=== PATIENT | male | born 1950 | race Caucasian/White ===

== ENCOUNTER → 2018-04-10 16:29 | Outpatient (CLI) | payer MEDICARE, OTHER, SELFPAY ==
[2018-04-10 17:25] LABS: Absolute Lymphocyte Count 1.65 X10^3/ul (0.83-4.51); Absolute Neutrophil Count 4.3 X10^3/uL (2.0-7.7); Basophil# 0.02 X10^3/uL; Basophil% 0.3 % (0-1); Eosinophil# 0.33 X10^3/uL; Eosinophils% 4.8 % (0-5); Hematocrit 44.9 % (40-54); Hemoglobin 15.2 g/dl (13.0-16.5); Lymphocyte # 1.65 X10^3/ul (4.0); Lymphocyte % 24.1 % (19-41); Mean Corp Hgb Conc 33.9 g/gl (32-36); Mean Corpuscular Hgb 30.7 pg (27.0-32.0); Mean Corpuscular Volume 90.7 fL (80-94); Mean Platelet Vol. 10.1 fl (6.2-12.0); Monocyte# 0.51 X10^3/uL; Monocyte% 7.4 % (0-10); Neutrophil # 4.34 X10^3/uL (2.7-7.7); Neutrophil % 63.3 % (47-70); Platelet Count 188 K/mm3 (150-450); RBC Distribution Width CV 12.6 % (11.6-14.6); RBC Distribution Width SD 41.5 fl (35.1-43.9); Red Blood Count 4.95 M/mm3 (4.6-6.2); White Blood Count 6.9 K/mm3 (4.4-11.0)
[2018-04-10 17:26] LABS: POSITIVE COUNT NO; POSITIVE DIFFERENTIAL NO; POSITIVE MORPHOLOGY NO
[2018-04-10 17:38] LABS: Albumin, Serum 4.1 g/dL (3.2-5.0); BUN 17 mg/dL (7-18); BUN/Creat Ratio 13.7 RATIO (10-20); Creatinine, Serum 1.24 mg/dL (0.70-1.30); EST Glomerular Filtration Rate 62 mL/min (>60); Est Glom Filt Rate - Afr Amer 75 mL/min (>60); Globulin 3.8 g/dL (2.2-4.2); Glucose 272 mg/dL (74-106); Protein, Total 7.9 g/dL (6.4-8.2)
[2018-04-10 17:39] LABS: ALB/GLOB Ratio 1.1 RATIO (0.9-2.4); AST(SGOT) 19 U/L (15-37); Alanine Aminotransfer ALT/SGPT 39 U/L (16-61); Alkaline Phosphatase 100 U/L (45-117); Anion Gap 6 (5-15); Calcium,Total 8.8 mg/dL (8.5-10.1); Chloride 105 mmol/L (98-107); Potassium 4.3 mmol/L (3.5-5.1); Sodium Level 140 mmol/L (136-145)
[2018-04-12 11:09] LABS: HEPATITIS B SURFACE AG Negative (Negative); Hepatitis A AB, Total Negative (Negative); Hepatitis A IgM Antibody Negative (Negative); Hepatitis B Core AB IgM Negative (Negative); Hepatitis B Core Ab Total Negative (Negative); Hepatitis C Ab <0.1 s/co ratio (0.0-0.9)
[2018-04-13 09:56] LABS: Hep B Surface Antibodies Non Reactive (.)
== END ==
PROVIDERS: Referring Provider Dermatology Pediatric Dermatology; Visit Provider Dermatology Pediatric Dermatology
DX: L40.0 Psoriasis vulgaris (principal)
CPT/HCPCS: 36415; 80053; 85025; 86704; 86705; 86706; 86708; 86709; 86803; 87340

== ENCOUNTER 2019-08-23 15:05 | Emergency (ER) | payer OTHER, MEDICARE, SELFPAY ==
[2019-08-23 15:07] VITALS: BP 157/79; PULSE 110; RESP 18; TEMP 36.2; O2SAT 98; BMI 32.8
[2019-08-23 15:23] VITALS: RESP 16
[2019-08-23 15:49] LABS: Absolute Neutrophil Count 5.6 X10^3/uL (2.0-7.7); Basophil# 0.02 X10^3/uL; Basophil% 0.3 % (0-1); Eosinophil# 0.09 X10^3/uL; Eosinophils% 1.2 % (0-5); Hematocrit 35.1 % (40-54); Hemoglobin 11.7 g/dL (13.0-16.5); Lymphocyte % 15.8 % (19-41); Mean Corp Hgb Conc 33.3 g/dL (32-36); Mean Platelet Vol. 8.7 fl (6.2-12.0); Monocyte# 0.66 X10^3/uL; Monocyte% 8.7 % (0-10); NRBC Flagged by Analyzer 0 % (0-5); Neutrophil # 5.59 X10^3/uL (2.7-7.7); Neutrophil % 73.6 % (47-70); Platelet Count 249 K/mm3 (150-450); RBC Distribution Width CV 11.4 % (11.6-14.6); RBC Distribution Width SD 37.2 fl (35.1-43.9); White Blood Count 7.6 K/mm3 (4.4-11.0)
--- NOTE | 2019-08-23 15:50 | RAD_ITS ---
STUDY: X-RAY - ACUTE ABDOMINAL SERIES REASON FOR EXAM: Male, 69 years old. Abdominal pain since the beginning of the year. TECHNIQUE: Single view of the chest. Supine, 5 view(s) of the abdomen were obtained. COMPARISON: None. FINDINGS: The lungs are clear and expanded. Normal size heart. Normal mediastinum and edilberto. Normal visualized pulmonary arteries. Normal visualized aortic arch and descending thoracic aorta. There is a non-specific bowel gas pattern. The soft tissue structures of the abdomen and pelvis are unremarkable. Unremarkable stool burden Normal visualized osseous structures. RAD/Acute Abdomen Inc Chest IMPRESSION: Normal x-ray examination of the chest, abdomen, and pelvis. Electronically Signed: Stewart Butler, at 16:14 EDT Tel , Service support ,
--- NOTE | 2019-08-23 15:51 | ED.DCSUM_ITS ---
- ER Visit Summary Date of Service: 08/23/19 Chief Complaint: Abdominal pain History of Present Illness: The patient is a 69 M who presents with abdominal pain that is been getting worse over the past 3 days. Patient states he has not had a bowel movement for the past 3 days. Patient states that he was given magnesium citrate which helped him to have a bowel movement. Patient states he has not taken any magnesium citrate since that time. Patient admits to some lower abdominal pain. Patient describes it as dull and aching. Patient states nothing makes it better or worse. Patient states that when he becomes too constipated he does have some nausea and vomiting but this improves after he after a bowel movement. Patient denies any diarrhea, melena, or hematochezia. Patient does admit to some urinary frequency but denies any dysuria or hematuria. Physical Examination: Vital signs are stable. Patient is afebrile. Patient is in no acute distress. Oral mucosa is pink and moist. Neck is supple. Trachea is midline. There is no JVD. Heart was regular rate and rhythm. Lungs are clear and equal bilaterally. Abdomen is soft. Bowel sounds are normal. There is some mild lower abdominal tenderness. There is no rebound or guarding noted. Cranial nerves II through XII are intact. There are no focal motor or sensory deficits. Remedies are intact. There is no calf tenderness or edema. Test Results: CBC showed a mild anemia with a hemoglobin of 11.7 and hematocrit 35.1. Comprehensive metabolic profile showed a slightly elevated glucose of 344 and a slightly elevated lipase of 637. Urinalysis was normal. Acute abdominal x-rays were obtained. There is no evidence of obstruction. There is no stool noted in the colon. It was interpreted by the radiologist and myself. Emergency Department Course and Treatment: Patient was given IV fluids here. Patient was feeling better on reevaluation. Patient was instructed to start with a liquid diet and advance as tolerated. Patient was instructed to take fiber supplements daily. Patient was instructed to follow-up with his primary care physician in 5 to 7 days. Patient understood and was agreeable with the plan. All questions were answered. Disposition: Discharge home Impression: 1. Abdominal pain This note was generated with [employer] software. It may contain incorrect words, spelling, and punctuation that were not noted in review of the chart prior to signing ED Disposition - Plan for ED Patient: Disposition: Home or Assisted Living Diagnosis: Abdominal pain Instructions: ED Unknown Causes of Abdominal Pain Male Referrals: [facility] [Primary Care Provider] - 5-7 Days
[2019-08-23] MEDS: 0.9% Normal Saline 1,000 ML 1000 ML IV (15:56)
[2019-08-23 16:05] LABS: ALB/GLOB Ratio 0.6 RATIO (0.9-2.4); AST(SGOT) 14 U/L (15-37); Alanine Aminotransfer ALT/SGPT 22 U/L (16-61); Albumin, Serum 2.8 g/dL (3.2-5.0); Alkaline Phosphatase 68 U/L (45-117); Anion Gap 6 (5-15); BUN 16 mg/dL (7-18); BUN/Creat Ratio 16.5 RATIO (10-20); Calcium,Total 9.1 mg/dL (8.5-10.1); Chloride 101 mmol/L (98-107); Creatinine, Serum 0.97 mg/dL (0.70-1.30); EST Glomerular Filtration Rate 82 mL/min (>60); Est Glom Filt Rate - Afr Amer 99 mL/min (>60); Estimated Creatinine Clearance 72.89 ml/min; Globulin 4.4 g/dL (2.2-4.2); Glucose 344 mg/dL (74-106); Lipase 637 U/L (73-393); Potassium 4.3 mmol/L (3.5-5.1); Protein, Total 7.2 g/dL (6.4-8.2); Sodium Level 135 mmol/L (136-145)
[2019-08-23 17:06] VITALS: BP 191/100; PULSE 91; RESP 18; O2SAT 98
[2019-08-23 17:30] LABS: Bacteria 0 SEEN /hpf (None Seen); Mucous, Urine 0 SEEN /hpf (<or=2+); Red Blood Cells-Urine 0 SEEN /hpf (0-5); Squamous Epithelial Cells - UA 0 SEEN /hpf (0-5); White Blood Cells 0 SEEN /hpf (0-5)
[2019-08-23 17:31] LABS: Color, Urine Yellow (Yellow); Glucose, Dipstick 1000 mg/dl (Normal); Ketone-Dipstick 15 mg/dl (Negative); Leukocyte Esterase-Dipstick Negative /ul (Negative); Nitrite-Dipstick Negative (Negative); Occult Blood-Urine Negative /ul (Negative); Protein-Dipstick Negative (Negative); Urine Bilirubin Dipstick Negative (Negative); Urine Clarity Clear (Clear); Urine Urobilinogen Normal (Normal)
[2019-08-23 18:16] VITALS: BP 175/101; PULSE 89; RESP 16; O2SAT 98
--- NOTE | 2019-08-23 18:16 | ED.RN ---
REVIEWED D/C INSTRUCTIONS, FOLLOW UP CARE, AND S/S THAT WOULD WARRANT A RETURN TO THE ED WITH PT. PT VERBALIZED AN UNDERSTANDING AND DENIES FURTHER QUESTIONS FOR THIS RN. PT SKIN P/W/D, RESP EVEN AND UNLABORED, PT A&O X 3, NO DISTRESS NOTED. PT AMBULATED OUT OF ED, GAIT STEADY.
== END 2019-08-23 18:18 | disposition home or self-care (01) ==
PROVIDERS: Emergency Provider Emergency Medicine
DX: K59.00 Constipation, unspecified (principal); R11.2 Nausea with vomiting, unspecified; R35.0 Frequency of micturition; D64.9 Anemia, unspecified; E11.9 Type 2 diabetes mellitus without complications; Z79.82 Long term (current) use of aspirin; Z79.899 Other long term (current) drug therapy
CPT/HCPCS: 74022; 80053; 81001; 83690; 85025; 96360; 99283; J7030; A4216

== ENCOUNTER → 2020-03-29 09:56 | Outpatient (CLI) | payer MEDICARE, SELFPAY ==
--- NOTE | 2020-03-29 10:01 | CDU_ITS ---
Reason For Study: subjective visual disturbance Rt. Velocities/BP Lt. Velocities/BP Prox CCA 90.4/14.7 cm/sec. Prox CCA 76.5/17.6 cm/sec. Mid CCA 103.4/20.0 cm/sec. Mid CCA 79.0/20.0 cm/sec. Dist CCA 82.6/18.6 cm/sec. Dist CCA 76.5/17.6 cm/sec. Prox ICA 108.3/20.6 cm/sec. Prox ICA 63.0/13.9 cm/sec. Mid ICA 130.2/20.6 cm/sec. Mid ICA 90.0/27.4 cm/sec. Dist ICA 86.4/31.6 cm/sec. Dist ICA 104.7/27.4 cm/sec. Rt. ICA/CCA = 1.3. Lt. ICA/CCA = 1.3. Prox ECA 115.6/13.3 cm/sec. Prox ECA 138.9/20.4 cm/sec. Rt. Vert. 60.5/16.3 cm/sec. Lt. Vert. 58.1/18.8 cm/sec. Right Extracranial There is heterogeneous, irregular atherosclerotic plaque noted in the right common carotid artery. There is homogeneous, smooth atherosclerotic plaque noted in the right internal carotid artery. There is heterogeneous, irregular atherosclerotic plaque noted in the right external carotid artery. Antegrade flow is noted in the right vertebral artery. There is heterogeneous, irregular atherosclerotic plaque noted in the right bulb. Left Extracranial There is heterogeneous, irregular atherosclerotic plaque noted in the left common carotid artery. There is heterogeneous, irregular atherosclerotic plaque noted in the left internal carotid artery. There is heterogeneous, irregular atherosclerotic plaque noted in the left external carotid artery. Antegrade flow is noted in the left vertebral artery. There is heterogeneous, irregular atherosclerotic plaque noted in the left bulb. Procedure Carotid Duplex [id number]. This is a Carotid Duplex examination using B-mode, color flow and specral Doppler. The exam was diagnostic. Exam performed in department. Interpretation Summary Mild (<50%) stenosis right extracranial internal carotid. Mild (<50%) stenosis left extracranial internal carotid. Flow within the vertebral arteries is antegrade bilaterally. Heterogeneous, irregular atherosclerotic plaque is noted in the carotid bulbs bilaterally, which does not appear to be hemodynamically significant. Ordering Physician: Aurelio Downey Performed By: Guillermo Acosta RVT
== END ==
PROVIDERS: Referring Provider Ophthalmology; Visit Provider Ophthalmology
DX: H53.10 Unspecified subjective visual disturbances (principal)
CPT/HCPCS: 93880

== ENCOUNTER 2021-06-07 11:22 | Emergency (ER) | payer OTHER, SELFPAY ==
[2021-06-07 11:22] VITALS: BP 180/87; PULSE 80; RESP 16; TEMP 36.6; O2SAT 98; BMI 36.1
[2021-06-07 11:25] VITALS: BP 180/87; PULSE 80; RESP 16; TEMP 36.6; O2SAT 98
--- NOTE | 2021-06-07 11:33 | EKG12_ITS ---
Test Reason : SOB Blood Pressure : / mmHG Vent. Rate : 080 BPM Atrial Rate : 080 BPM P-R Int : 126 ms QRS Dur : 094 ms QT Int : 368 ms P-R-T Axes : 032 040 017 degrees QTc Int : 424 ms Normal sinus rhythm Normal ECG Confirmed by ZHEN BARRERA, BETSY ([id number]), assistant editor KAROL BOURGEOIS ([id number]) on 06/08/2021 11:08:30 AM Referred By: PL Confirmed By:MYRA FONTAINE MD
--- NOTE | 2021-06-07 11:33 | RAD_ITS ---
STUDY: X-RAY CHEST REASON FOR EXAM: Male, 71 years old. SOB, COvid TECHNIQUE: Single AP portable view of the chest. COMPARISON: Comparison is made with prior study dated 08/22/2021 FINDINGS: EKG electrodes are seen. Stable minimal increased markings at the left lung base. This most likely represents mild degree of scarring. There is no demonstrated pleural abnormality. Normal size heart. Normal mediastinum and edilberto. Normal visualized pulmonary arteries. There is atherosclerotic tortuosity of the aortic arch and descending thoracic aorta. Normal visualized thoracic spine. Normal visualized ribs, clavicles, and shoulders. There is no demonstrated abnormality of the visualized soft tissue structures of the upper abdomen. RAD/Chest 1 View (Portable) IMPRESSION: No acute abnormality is seen. Electronically Signed: Ronnie Bridges MD at 12:56 EST ,
[2021-06-07 11:45] VITALS: O2SAT 97
[2021-06-07 11:52] LABS: Absolute Lymphocyte Count 0.72 X10^3/uL (0.83-4.51); Absolute Neutrophil Count 3.5 X10^3/uL (2.0-7.7); Eosinophil# 0.03 X10^3/uL; Eosinophils% 0.6 % (0-5); Hematocrit 40.6 % (40-54); Hemoglobin 14.2 g/dL (13.0-16.5); Lymphocyte # 0.72 X10^3/ul (0.83-4.51); Lymphocyte % 14.7 % (19-41); Mean Corpuscular Volume 94.4 fL (80-94); Mean Platelet Vol. 9.8 fl (6.2-12.0); Monocyte# 0.66 X10^3/uL; Monocyte% 13.5 % (0-10); NRBC Flagged by Analyzer 0 % (0-5); Neutrophil # 3.47 X10^3/uL (2.7-7.7); Platelet Count 129 K/mm3 (150-450); RBC Distribution Width CV 13.2 % (11.6-14.6); RBC Distribution Width SD 45.3 fl (35.1-43.9); White Blood Count 4.9 K/mm3 (4.4-11.0)
[2021-06-07 12:05] LABS: Anion Gap 7 (5-15); BUN 13 mg/dL (7-18); BUN/Creat Ratio 12.5 RATIO (10-20); Calcium,Total 8.5 mg/dL (8.5-10.1); Chloride 108 mmol/L (98-107); Creatinine, Serum 1.04 mg/dL (0.70-1.30); EST Glomerular Filtration Rate 75 mL/min (>60); Est Glom Filt Rate - Afr Amer 91 mL/min (>60); Estimated Creatinine Clearance 66.09 ml/min; Glucose 168 mg/dL (74-106); Potassium 4.2 mmol/L (3.5-5.1); Sodium Level 142 mmol/L (136-145)
[2021-06-07] MEDS: LORazepam 2 MG/ML Syringe 1 MG IV (12:24)
--- NOTE | 2021-06-07 13:03 | EX.ED.DYSGE1 ---
HPI History of Present Illness Chief Complaint: Shortness of Breath Informant: patient Narrative Narrative: Patient was sent in for low O2 sats at home known Covid positive from a testing yesterday that I do not have access to. He states he has been coughing a little more than normal for about 3 or 4 days. He coughs in the morning but then he feels great until later in the evening where he might cough again. Once he coughs and clears his throat he feels fine. He goes on about his normal day without any problems. He has no chest pain. No sputum production. Evidently his saturations were 88 to 89% at home. However, he felt good. He has no complaints and does not feel as though he needs to be here. PFSH PFSH Home Medications aspirin 81 mg PO DAILY 03/29/17 [History Last Taken Unknown] docusate sodium [Stool Softener] 250 mg PO BID 03/29/17 [History Last Taken Unknown] krill oil 500 mg PO BID 03/29/17 [History Last Taken Unknown] lisinopril 20 mg PO DAILY 03/29/17 [History Last Taken Unknown] calcium carbonate 500 mg PO DAILY 08/23/19 [History Last Taken Unknown] diphenhydramine HCl 50 mg PO DAILY 08/23/19 [History Last Taken Unknown] donepezil 5 mg PO DAILY 08/23/19 [History Last Taken Unknown] gabapentin 300 mg PO BID 08/23/19 [History Last Taken Unknown] goldenseal 1,140 mg PO DAILY 08/23/19 [History Last Taken Unknown] loratadine 5 mg PO BID 08/23/19 [History Last Taken Unknown] melatonin 6 mg PO DAILY 08/23/19 [History Last Taken Unknown] multivitamin 2 ea PO DAILY 08/23/19 [History Last Taken Unknown] omeprazole 40 mg PO DAILY 08/23/19 [History Last Taken Unknown] polyethylene glycol 3350 17 gm PO DAILY 08/23/19 [History Last Taken Unknown] sennosides 1 tab PO QODAY 08/23/19 [History Last Taken Unknown] dexamethasone [Decadron] 6 mg PO DAILY #9 tab 06/07/21 [Rx Last Taken Unknown] Allergy/AdvReac Type Severity Reaction Status Date / Time No Known Allergies Allergy Verified 06/07/21 11:25 Social History Smoking Status: Former smoker ROS ROS ED Constitutional Constitutional ED: Denies chills, fever(s) or subjective Eyes Eyes: Denies blurry vision ENT ENT ED: Reports rhinorrhea; Denies sore throat Cardiovascular Cardiovascular: Denies chest pain or palpitations Respiratory/Chest Respiratory/Chest: Reports cough; Denies dyspnea or sputum Gastrointestinal Gastrointestinal: Reports constipation and other Details: Patient has chronic constipation but no changes and no discomfort. ; Denies abdominal pain, diarrhea, nausea or vomiting Genitourinary Genitourinary ED: Denies dysuria Musculoskeletal Musculoskeletal: Denies myalgias Integumentary Denies rash Neurologic Neurologic: Denies headache(s) Endocrine Endocrinology: Denies polydipsia or polyuria Allergic/Immunologic Allergic/Immunologic ED: Denies mouth swelling or urticaria EXAM Physical Exam Const Vital Signs: 06/07/21 11:22 06/07/21 11:25 06/07/21 11:45 Temperature 97.8 F 97.8 F Temperature Source Temporal Temporal Pulse Rate 80 80 Respiratory Rate 16 16 Respiratory Effort Short of Breath Respiratory Depth Normal Respiratory Pattern Normal Blood Pressure 180/87 H 180/87 H Blood Pressure Mean 118 118 Pulse Ox 98 98 Oxygen Delivery Method Room Air Room Air Room Air Positive well nourished and well developed General Appearance ED: well developed and NAD; Negative for cyanotic or diaphoretic HEENT Reports moist mucous membranes; Denies dry mucous membranes Mouth ED: No dry mucous membranes Mouth: No dry mucous membranes Eyes General Eye ED: Negative for pale conjunctiva or scleral icterus Neck no JVD Chest Wall inspection of chest normal Resp normal respiratory effort and clear to auscultation bilaterally Resp Narrative: Lungs sound surprisingly good. Effort and Inspection: Negative for pain with movement Auscultation: Negative for rales, rhonchi or wheezes Cardio regular rate and regular rhythm GI normal to inspection, nondistended, normoactive bowel sounds GI Narrative: Obese but benign Palpation: soft Back/Spine no CVA tenderness Neuro Sensorium / Orientation: alert Psych mental status grossly normal Skin no rashes or lesions noted MDM MDM MDM Narrative Medical decision making narrative: Chest x-ray shows no acute process. CBC is normal. Electrolytes show no marked abnormalities other than mild elevation of glucose at 168. Covid is verified positive here. Patient was walked in with no oxygen his sats only went about 94%. He does not desaturate here. However, he did have an episode of desaturation at home. I do not think he needs or qualifies for oxygen at this time but I will place him on Decadron because he is at higher risk and does have at least 1 reported low O2 sat. I will get him arranged for monoclonal treatment. He is not on oxygen now so should qualify. We discussed reasons to return. Lab Data Attestation: I reviewed the patient's lab results. Labs: Laboratory Results - last 24 hr 06/07/21 06/07/21 11:40 11:40 WBC 4.9 RBC 4.30 L Hgb 14.2 Hct 40.6 MCV 94.4 H MCH 33.0 H MCHC 35.0 RDW Std Deviation 45.3 H RDW Coeff of Danis 13.2 Plt Count 129 L MPV 9.8 Immature Gran % (Auto) 0.200 Neut % (Auto) 71.0 H Lymph % (Auto) 14.7 L [place] % (Auto) 13.5 H Eos % (Auto) 0.6 Baso % (Auto) 0.0 Absolute Neuts (auto) 3.5 Absolute Lymphs (auto) 0.72 L Nucleated RBC % 0 Sodium 142 Potassium 4.2 Chloride 108 H Carbon Dioxide 27.0 Anion Gap 7 BUN 13 Creatinine 1.04 Estim Creat Clear Calc 66.09 Est GFR (MDRD) Af Amer 91 Est GFR (MDRD) Non-Af 75 BUN/Creatinine Ratio 12.5 Glucose 168 H Calcium 8.5 Radiography Diagnostic Testing: Clinical Impression(s) from Imaging Studies Chest X-Ray 06/07/21 11:33 IMPRESSION: No acute abnormality is seen. Electronically Signed: Ronnie Bridges MD at 12:56 EST , Discharge Plan Triage Chief Complaint: Shortness of Breath ED Provider: Favian Rocha Dx/Rx/DC Orders Clinical Impression: COVID Instructions: Coronavirus Disease 2019 (COVID-19): Caring for Yourself or Others Prescriptions: New dexamethasone [Decadron] 6 mg tablet 6 mg PO DAILY Qty: 9 RF: 0 No Action lisinopril 20 MG tablet 20 mg PO DAILY RF: 0 aspirin 81 MG tablet,delayed release (DR/EC) 81 mg PO DAILY RF: 0 docusate sodium [Stool Softener] 250 MG capsule 250 mg PO BID RF: 0 krill oil 500 MG capsule 500 mg PO BID RF: 0 multivitamin 1 EACH tablet 2 ea PO DAILY RF: 0 sennosides 1 TABLET tablet 1 tab PO QODAY RF: 0 donepezil 5 MG tablet 5 mg PO DAILY RF: 0 polyethylene glycol 3350 17 GM packet 17 gm PO DAILY RF: 0 melatonin 3 MG tablet 6 mg PO DAILY RF: 0 diphenhydramine HCl 25 MG capsule 50 mg PO DAILY RF: 0 gabapentin 300 MG capsule 300 mg PO BID RF: 0 calcium carbonate 500 MG tablet,chewable 500 mg PO DAILY RF: 0 goldenseal 325 MG capsule 1,140 mg PO DAILY RF: 0 omeprazole 20 MG tablet,delayed release (DR/EC) 40 mg PO DAILY RF: 0 loratadine 10 MG capsule 5 mg PO BID RF: 0 [facility] Care Provider: [facility] [[facility]] - 3-5 Days if not improving Disposition Disposition: Home, Self Care
[2021-06-07] MEDS: dexAMETHasone 4 MG Tablet 6 MG PO (13:26)
[2021-06-07 13:30] VITALS: BP 155/81; RESP 17; O2SAT 99
== END 2021-06-07 23:59 | disposition home or self-care (01) ==
PROVIDERS: Emergency Provider Emergency Medicine; Visit Provider Emergency Medicine
DX: U07.1 COVID-19 (principal); Z87.891 Personal history of nicotine dependence
CPT/HCPCS: 71045; 80048; 85025; 87426; 93005; 96374; 99284; A4216

== ENCOUNTER 2021-06-09 14:11 | Outpatient (CLI) | payer MEDICARE, OTHER, SELFPAY ==
[2021-06-09 14:46] VITALS: BP 166/85; PULSE 91; RESP 16; TEMP 39.1; O2SAT 96; BMI 26.6
[2021-06-09] MEDS: Acetaminophen 325 MG Tablet 650 MG PO (15:29)
[2021-06-09] MEDS: 0.9% Saline Lock 10 ML Syringe IV (15:32)
--- NOTE | 2021-06-09 15:44 | NURSING ---
PATIENT TEMP 102.4 ON ADMISSION. GIVEN TYLENOL.
[2021-06-09 15:50] VITALS: BP 126/69; PULSE 84; RESP 18; TEMP 39.4; O2SAT 97
[2021-06-09 16:50] VITALS: BP 139/71; PULSE 81; RESP 18; TEMP 38.7; O2SAT 100
--- NOTE | 2021-06-09 17:02 | NURSING ---
PATIENTS TEMPERATURE DOWN TO 101.6 AT DISCHARGE AFTER PRN DOSE OF TYLENOL
== END 2021-06-09 23:59 | disposition home or self-care (01) ==
LOC: MS3OUT 14:12 → MS3 14:13
PROVIDERS: Referring Provider Nurse Practitioner Adult Health; Visit Provider Nurse Practitioner Adult Health
DX: Z23 Encounter for immunization (principal); U07.1 COVID-19
CPT/HCPCS: J7050; M0247; A4216; Q0247